=== PATIENT | male | born 1975 | race Caucasian/White ===

== ENCOUNTER 2017-04-03 05:24 | Inpatient (IN) | payer BC ==
[~2017-04-03] VITALS: Ht 182.9 cm; Wt 132.5 kg
[2017-04-03] VITALS (12 sets, daily range): BP systolic 111–150; BP diastolic 45–80
[2017-04-03 05:54] LABS: BASO % 0.2 % (0.0-1.0); EOS % 0.2 % (1.0-4.0); HEMATOCRIT 45.9 % (42.0-52.0); HEMOGLOBIN 14.9 g/dl (14.0-18.0); IG # 0.1 10*3/uL (0.0-0.1); LYMPH % 11.6 % (27.0-41.0); MEAN CELL VOLUME 87.6 fl (80.0-94.0); MEAN CORPUSCULAR HGB 28.4 pg (27.0-31.0); MEAN CORPUSCULAR HGB CONC 32.5 g/dl (33.0-37.0); MEAN PLATELET VOLUME 10.5 fl (9.6-12.3); MONO # 0.9 10*3/uL (0.1-1.0); MONO % 5.3 % (3.0-9.0); NEUT # 14.3 10*3/uL (2.3-7.9); NEUT % 82.2 % (47.0-73.0); PLATELET COUNT AUTOMATED 261 10*3/uL (130-400); RED BLOOD COUNT 5.24 10*6/uL (4.50-5.90); RED CELL DISTRI WIDTH 14.3 % (0-14.5); WHITE BLOOD COUNT 17.4 10*3/uL (4.8-10.8)
[2017-04-03 05:57] LABS: BILIRUBIN 1+ (NEGATIVE); BLOOD NEGATIVE (NEGATIVE); CLARITY SL CLOUDY (CLEAR); COLOR YELLOW (YELLOW); GLUCOSE TRACE (NEGATIVE); KETONE NEGATIVE (NEGATIVE); LEUKO ESTERASE NEGATIVE (NEGATIVE); NITRITE NEGATIVE (NEGATIVE); PROTEIN 2+ (NEGATIVE); SPECIFIC GRAVITY >= 1.030 (1.005-1.030); UROBILINOGEN 0.2 E.U./dl (0.2-1.0)
[2017-04-03 06:10] LABS: ALBUMIN 3.8 gm/dl (3.1-4.5); ALKALINE PHOSPHATASE 74 U/L (45-117); BILIRUBIN, TOTAL 0.2 mg/dl (0.2-1.0); BUN 21 mg/dl (7-24); CARBON DIOXIDE 26 mmol/L (21-32); CHLORIDE 104 mmol/L (98-107); EST GLOM FILT AFRICAN AMERICAN > 60 ml/min; GLUCOSE 148 mg/dL (65-99); POTASSIUM 4.7 mmol/L (3.5-5.1); SGOT/AST 17 IU/L (3-35); SGPT/ALT 26 U/L (12-78); SODIUM 140 mmol/L (136-145); TOTAL PROTEIN 8.3 gm/dL (6.4-8.2)
[2017-04-03 06:17] LABS: HEMOGLOBIN A1c 6.4 % (4.8-5.6)
[2017-04-03 06:17] LABS: BACTERIA 2+; RBC 31-40 rbc/hpf (0-2); URINE REFLEX COMMENT YES (NO); WBC 21-30 wbc/hpf (0-5)
[2017-04-03 06:18] LABS: TROPONIN I < 0.015 ng/ml (<0.045)
[2017-04-03 07:49] LABS: LA>2 REFLEX 2 HR DRAW NOW
[2017-04-03] MEDS ORDERED: LISINOPRIL-HYDR1 TA1 PO (11:45)
[2017-04-03] MEDS ORDERED: LISINOPRIL20 MG PO (11:46)
[2017-04-03] MEDS ORDERED: LEXAPRO20 MG PO (11:46)
[2017-04-03] MEDS ORDERED: MEDROL DOSEPAK4 MG PO (12:09)
[2017-04-04] VITALS: BP 142/64
[2017-04-04 06:28] LABS: BASO % 0.4 % (0.0-1.0); EOS # 0.2 10*3/uL (0.0-0.4); EOS % 1.7 % (1.0-4.0); HEMATOCRIT 41.6 % (42.0-52.0); HEMOGLOBIN 13.5 g/dl (14.0-18.0); LYMPH % 19.6 % (27.0-41.0); MEAN CELL VOLUME 89.1 fl (80.0-94.0); MEAN CORPUSCULAR HGB 28.9 pg (27.0-31.0); MEAN CORPUSCULAR HGB CONC 32.5 g/dl (33.0-37.0); MEAN PLATELET VOLUME 10.1 fl (9.6-12.3); MONO # 0.8 10*3/uL (0.1-1.0); MONO % 7.8 % (3.0-9.0); NEUT # 7.2 10*3/uL (2.3-7.9); NEUT % 70.1 % (47.0-73.0); PLATELET COUNT AUTOMATED 219 10*3/uL (130-400); RED BLOOD COUNT 4.67 10*6/uL (4.50-5.90); RED CELL DISTRI WIDTH 14.7 % (0-14.5); WHITE BLOOD COUNT 10.2 10*3/uL (4.8-10.8)
[2017-04-04 07:04] LABS: CHLORIDE 115 mmol/L (98-107); POTASSIUM 4.2 mmol/L (3.5-5.1); SODIUM 145 mmol/L (136-145)
[2017-04-04 07:11] LABS: HEMOGLOBIN A1c 6.5 % (4.8-5.6)
[2017-04-04 07:18] LABS: ALBUMIN 3.1 gm/dl (3.1-4.5); ALKALINE PHOSPHATASE 63 U/L (45-117); BILIRUBIN, TOTAL 0.3 mg/dl (0.2-1.0); BUN 22 mg/dl (7-24); CARBON DIOXIDE 23 mmol/L (21-32); CHOLESTEROL 214 mg/dL (<200); EST GLOM FILT AFRICAN AMERICAN > 60 ml/min; GLUCOSE 117 mg/dL (65-99); HDL CHOLESTEROL 29 mg/dl (40-60); LDL CHOLESTEROL 139 mg/dL (9-159); MAGNESIUM 2.3 mg/dL (1.5-2.1); PHOSPHOROUS 2.2 mg/dL (2.5-4.9); SGOT/AST 11 IU/L (3-35); SGPT/ALT 21 U/L (12-78); TOTAL PROTEIN 6.8 gm/dL (6.4-8.2); TRIGLYCERIDES 229 mg/dl (<150); VLDL CHOLESTEROL 46 mg/dL (6-40)
[2017-04-04 07:40] LABS: FOLIC ACID 13.32 ng/mL (>5.38)
[2017-04-04 08:00] VITALS: BP 136/68
[2017-04-04 12:00] VITALS: BP 119/88
== END 2017-04-04 16:35 | disposition home or self-care (01) | DRG 390 ==
LOC: ED 05:24 → EDHOLD 10:09 → 5E 10:09
PROVIDERS: Emergency Medicine Emergency Medical Services; Hospitalist
DX: K56.60 Unspecified intestinal obstruction (principal); I10 Essential (primary) hypertension; M54.30 Sciatica, unspecified side; F17.210 Nicotine dependence, cigarettes, uncomplicated; R00.1 Bradycardia, unspecified; R00.0 Tachycardia, unspecified; K52.9 Noninfective gastroenteritis and colitis, unspecified; E78.2 Mixed hyperlipidemia; Z53.29 Procedure and treatment not carried out because of patient's decision for other reasons; Z79.899 Other long term (current) drug therapy